=== PATIENT | female | born 1970 | race American Indian/Alaskan Native ===

== ENCOUNTER 2021-10-12 04:16 | Day surgery (SDC) | payer BC ==
[2021-10-11 09:07] VITALS: BMI 29.7
[2021-10-12] MEDS ORDERED: OXYMETAZOLINE 0.05% NASAL SOLUTION 15 ML BOTTLE NS ONE ×2 (07:30→08:45)
[2021-10-12] MEDS ORDERED: LIDOCAINE 1%/EPI 1:100000 (20 ML MULTI DOSE VIAL) ONE (07:35)
[2021-10-12] MEDS ORDERED: SUCCINYLCHOLINE CHLORIDE 200 MG/10 ML SYRINGE ONE (08:06)
[2021-10-12] MEDS ORDERED: PROPOFOL 20 ML ONE (08:06)
[2021-10-12] MEDS ORDERED: HYDROmorphone HCl 2 MG/ML VIAL ONE (08:19)
[2021-10-12] MEDS ORDERED: DEXAMETHASONE SOD PHOSPHATE 4 MG/1 ML VIAL ONE (08:31)
[2021-10-12] MEDS ORDERED: LIDOCAINE 1%/EPI 1:100000 (50 ML MULTI DOSE VIAL) INF ONE ×2 (08:42)
[2021-10-12] MEDS ORDERED: ONDANSETRON 4 MG/2 ML VIAL IVPUSH PRN (09:18)
[2021-10-12] MEDS ORDERED: ACETAMINOPHEN 325 MG TABLET (FP) PO PRN (09:18)
[2021-10-12] MEDS ORDERED: oxyCODONE HCL 5 MG TABLET PO PRN (09:18)
[2021-10-12] MEDS ORDERED: LACTATED RINGERS SOLUTION 1,000 ML IV SCH (09:30)
[2021-10-12] MEDS ORDERED: ACETAMINOPHEN 325 MG TABLET (FP) ONE (10:51)
[2021-10-12 11:22] VITALS: BP 107/73; PULSE 57; TEMP 97.5
== END 2021-10-12 13:00 | disposition home or self-care (01) ==
LOC: JASU-SURG 04:16
PROVIDERS: ATTEND Otolaryngology
PROC: 0CX Mouth and Throat, Transfer (ICD-10-PCS; 2021-10-12)
PROC: 09SL0ZZ Reposition Nasal Turbinate, Open Approach (ICD-10-PCS; principal; 2021-10-12 08:00)
DX: R09.81 Nasal congestion (principal); R06.83 Snoring
CPT/HCPCS: 81025; 94760